=== PATIENT | female | born 1985 | race Caucasian/White ===

== ENCOUNTER 2016-10-13 06:16 | Inpatient (IN) | payer BC ==
[2016-10-13] MEDS ORDERED: CITRIC ACID/SODIUM CITRATE SOL PO ONE ×2 (06:25→06:30)
[2016-10-13] MEDS ORDERED: MORPHINE SULFATE 0.5 MG/ML SOL ONE (06:27)
[2016-10-13] MEDS ORDERED: CEFAZOLIN SODIUM 1 GM PDS IVP ONE (06:30)
[2016-10-13] MEDS ORDERED: SODIUM CHLORIDE 0.9% 50 ML 25 ML IV PRN (06:30)
[2016-10-13] MEDS: LACTATED RINGERS 1,000 ML IV SCH ×5 (06:30→22:47)
[2016-10-13] MEDS ORDERED: OXYTOCIN 10000 MU/ML SOL ONE ×3 (06:44→07:07)
[2016-10-13] MEDS ORDERED: LACTATED RINGERS 1,000 ML with OXYTOCIN 10000 MU/ML 20 MU IV ONE ×2 (06:51→07:14)
[2016-10-13] MEDS ORDERED: MORPHINE SULFATE 10 MG/ML SOL ONE (08:31)
[2016-10-13] MEDS ORDERED: BISACODYL 10 MG SUP PR PRN (08:31)
[2016-10-13] MEDS ORDERED: BENZOCAINE/MENTHOL 1 SPR TOP PRN (08:31)
[2016-10-13] MEDS ORDERED: METHYLERGONOVINE MALEATE 0.2 MG TAB PO PRN (08:31)
[2016-10-13] MEDS ORDERED: APAP/HYDROCODONE 325/5 TAB PO PRN (08:31)
[2016-10-13] MEDS ORDERED: KETOROLAC TROMETHAMINE 30 MG/ML SOL ONE (08:31)
[2016-10-13] MEDS ORDERED: ONDANSETRON HCL 4 MG/2 ML SOL IV PRN (08:31)
[2016-10-13] MEDS ORDERED: FLEET ENEMA PR PRN (08:31)
[2016-10-13] MEDS ORDERED: WITCH HAZEL 1 EA PAD TOP PRN (08:31)
[2016-10-13] MEDS ORDERED: TEMAZEPAM 15MG 15 MG CAP PO PRN (08:31)
[2016-10-13] MEDS ORDERED: KETOROLAC TROMETHAMINE 30 MG/ML SOL IV PRN (08:31)
[2016-10-13] MEDS ORDERED: DIPHENHYDRAMINE 25 MG CAP PO PRN (08:31)
[2016-10-13 08:55] LABS: HEMATOCRIT 32 % (35-47); MEAN CORPUSCULAR HGB CONC 38.3 gm/dl (32.0-36.0); MEAN CORPUSCULAR VOLUME 86 fL (81-99)
[2016-10-13 09:06] LABS: LYMPHOCYTES % (MANUAL) 4 % (10-50)
[2016-10-13 09:07] LABS: ANISOCYTOSIS SLIGHT AMT; BASOPHILS % (MANUAL) 0 % (0-3); EOSINOPHILS % (MANUAL) 0 % (0-9); PLATELET MORPHOLOGY COMMENT ADEQUATE
[2016-10-13] MEDS ORDERED: HYDROMORPHONE 1 MG/ML SYRINGE IV PRN (09:30)
[2016-10-13] MEDS: DOCUSATE SODIUM 100 MG SGL PO SCH ×2 (09:58→20:27)
[2016-10-13 10:25] LABS: ABO A; ANTIBODY SCREEN Negative; RH TYPE Positive
[2016-10-13 11:48] LABS: APPEARANCE,URINE Clear; BILIRUBIN,URINE NEGATIVE (NEGATIVE); COLOR,URINE Yellow; GLUCOSE, URINE (UA) NEGATIVE (NEGATIVE); KETONES,URINE NEGATIVE (NEGATIVE); LEUKOCYTE ESTERASE ,URINE NEGATIVE (NEGATIVE); NITRATE,URINE NEGATIVE (NEGATIVE); OCCULT BLOOD,URINE 1+ (NEG-TRACE); PH,URINE 6.5; UROBILINOGEN,URINE 0.2 (0.2-1.0 EU)
[2016-10-13] MEDS ORDERED: CEFAZOLIN (PREMIX) 1 GM 1 GM/50 ML SOL IV SCH (12:31)
[2016-10-13] MEDS ORDERED: CEFAZOLIN (PREMIX) 1 GM 1 GM/50 ML SOL IV ONE (12:42)
[2016-10-13] MEDS: IBUPROFEN 600 MG TAB PO PRN (22:47)
[2016-10-14] MEDS: IBUPROFEN 600 MG TAB PO PRN ×3 (05:43→19:17)
[2016-10-14] MEDS: LACTATED RINGERS 1,000 ML IV SCH (06:24)
[2016-10-14] MEDS: DOCUSATE SODIUM 100 MG SGL PO SCH ×2 (08:41→20:44)
[2016-10-14] MEDS: MULTIVITAMIN2 1 EA TAB PO SCH (08:41)
[2016-10-14] MEDS: FOLIC ACID 1 MG TAB PO SCH (08:41)
[2016-10-14] MEDS: SODIUM CHLORIDE 0.9% FLUSH 10 ML SOL IV SCH ×2 (17:00→23:10)
[2016-10-15] MEDS: IBUPROFEN 600 MG TAB PO PRN ×3 (04:21→19:23)
[2016-10-15] MEDS: FERROUS SULFATE 325 MG TAB PO SCH (09:46)
[2016-10-15] MEDS: DOCUSATE SODIUM 100 MG SGL PO SCH ×2 (09:46→20:26)
[2016-10-15] MEDS: MULTIVITAMIN2 1 EA TAB PO SCH (09:47)
[2016-10-15] MEDS: FOLIC ACID 1 MG TAB PO SCH (09:47)
[2016-10-15] MEDS: SODIUM CHLORIDE 0.9% FLUSH 10 ML SOL IV SCH (14:41)
[2016-10-15 16:47] VITALS: O2SAT 96
[2016-10-16] MEDS: IBUPROFEN 600 MG TAB PO PRN ×2 (03:10→10:03)
[2016-10-16 03:50] VITALS: RESP 20
[2016-10-16] MEDS: FERROUS SULFATE 325 MG TAB PO SCH (08:50)
[2016-10-16] MEDS: DOCUSATE SODIUM 100 MG SGL PO SCH (08:50)
[2016-10-16] MEDS: MULTIVITAMIN2 1 EA TAB PO SCH (08:50)
[2016-10-16] MEDS: FOLIC ACID 1 MG TAB PO SCH (08:50)
[2016-10-16 10:17] VITALS: BP 122/71; PULSE 90; TEMP 97.4
== END 2016-10-16 13:45 | disposition home or self-care (01) | DRG 540 ==
LOC: OB 06:16 → OBSVTOIN 06:16
PROVIDERS: ADMIT Family Medicine; ATTEND Family Medicine
PROC: 0TQB0ZZ Repair Bladder, Open Approach (ICD-10-PCS; 2016-10-13)
PROC: 10D00Z1 Extraction of Products of Conception, Low, Open Approach (ICD-10-PCS; principal; 2016-10-13 06:56)
DX: O34.219 Maternal care for unspecified type scar from previous cesarean delivery (principal); O71.5 Other obstetric injury to pelvic organs; Z3A.39 39 weeks gestation of pregnancy; Z37.0 Single live birth; O90.81 Anemia of the puerperium
CPT/HCPCS: 36415; 59025; 81001; 85007; 85018; 85027; 86850; 86900; 86901; 99070; J0690; J1885; J2270; J2274; J2590